=== PATIENT | female | born 1985 | race African-American/Black ===

== ENCOUNTER 2021-10-04 16:26 | Emergency (ER) | payer BC ==
[2021-10-04] MEDS ORDERED: Ketorolac Tromethamine 30 MG/ML VIAL ONE (18:19)
[2021-10-04] MEDS ORDERED: Boostrix 0.5 ML (Tdap) VIAL ONE (18:19)
== END 2021-10-04 18:41 | disposition home or self-care (01) ==
LOC: CSHERS 16:26
DX: T20.26XA Burn of second degree of forehead and cheek, initial encounter (principal); T20.211A Burn of second degree of right ear [any part, except ear drum], initial encounter; T31.0 Burns involving less than 10% of body surface; H57.11 Ocular pain, right eye; X10.1XXA Contact with hot food, initial encounter; Z23 Encounter for immunization
CPT/HCPCS: 16000; 90471; 90715; 96372; 99283; J1885

== ENCOUNTER 2022-01-13 16:51 | Emergency (ER) | payer BC ==
[~2022-01-13 16:51] MED LIST: Iopamidol 300 61% 100 ML VIAL FS ONE
[2022-01-13 17:36] LABS: #Eosinphils 0.1 10x3/uL (0.0-0.5); #Monocytes 0.9 10x3/uL (0.0-1.1); #Neutrophils 4.3 10x3/uL (1.5-8.4); %Basophils 0.5 % (0.0-2.0); %Eosinophils 1.3 % (0.0-6.0); %Lymphocytes 32.2 % (18.0-47.0); %Neutrophils 54.7 % (40.0-75.0); Hemoglobin 9.8 g/dL (12.0-15.5); Mean Corpuscular HGB CONC 31.2 g/dL (32.0-36.0); Mean Corpuscular Hemoglobin 22.2 pg (27.0-33.0); Mean Corpuscular Volume 71.2 fl (81.6-98.3); Mean Platelet Volume 10.6 fl (7.4-10.4); Platelet Count 389 10x3/uL (150-450); RBC Distribution Width 18.6 % (11.5-14.5); Red Blood Cell (RBC) Count 4.41 10x6/uL (3.90-5.03); White Blood Cell (WBC) Count 7.9 10x3/uL (3.5-10.5)
[2022-01-13 17:56] LABS: ALT (SGPT) 19 U/L (8-55); AST (SGOT) 23 U/L (5-34); Alkaline Phosphatase 109 U/L (40-110); Anion Gap 11 mmol/L (10-20); BUN (Urea Nitrogen) 13 mg/dL (7.0-18.7); Bilirubin, Total 0.6 mg/dL (0.2-1.2); Calc. Creatinine Clearance 0 mL/min (70-130); Calcium 10.8 mg/dL (7.8-10.44); Carbon Dioxide 23 mmol/L (22-29); Chloride 109 mmol/L (98-107); Globulin 3.8 g/dL (2.4-3.5); Glucose 97 mg/dL (70-105); Lipase 72 U/L (8-78); Potassium 4.5 mmol/L (3.5-5.1); Protein, Total 7.8 g/dL (6.0-8.3); Sodium 138 mmol/L (136-145)
[2022-01-13 18:07] LABS: Bilirubin Neg (Negative); Blood, Urine Negative (Negative); Clarity Slightly Cloudy (Clear); Glucose, Urine (Dipstick) Normal (Negative); Ketone, Urine Negative (Negative); Leukocyte 500 (Negative); Nitrite Negative (Negative); Protein, Urine (Dipstick) Negative (Neg-Trace); Urobilinogen Normal mg/dL (Less than 2)
[2022-01-13 18:15] LABS: Pregnancy Test - Urine (BHCG) Negative (Negative); Pregu Control Background? CLEAR/WHITE (CLR/WHITE); Pregu Control Bar Appear? YES (CONTROL BAR)
[2022-01-13 18:21] LABS: Bacteria/HPF 2+ HPF (None Seen); Mucous/LPF Rare LPF (<2+); RBC/HPF 0-3 HPF (0-3); Transitional Epithelial 0-3 HPF (None Seen)
[2022-01-13] MEDS ORDERED: Morphine 4 MG/ML VIAL ONE (20:35)
[2022-01-13] MEDS ORDERED: diphenhydrAMINE 25 MG CAP ONE (20:35)
[2022-01-13] MEDS ORDERED: Orphenadrine Citrate 60 MG/2 ML VIAL IM SCH (22:30)
== END 2022-01-13 23:01 | disposition home or self-care (01) ==
LOC: CSHERS 16:51
DX: M25.512 Pain in left shoulder (principal); D25.9 Leiomyoma of uterus, unspecified
CPT/HCPCS: 36415; 74177; 80053; 81003; 81015; 81025; 83690; 85025; 93005; 96372; 96374; J2270; J2360